=== PATIENT | male | born 1995 | race Caucasian/White ===

== ENCOUNTER 2022-08-13 13:00 | Emergency (ER) | payer SELFPAY ==
[~2022-08-13] VITALS: Ht 172.7 cm; Wt 77.1 kg
[2022-08-13 13:10] VITALS: BP 118/73
[2022-08-13] MEDS ORDERED: QUET50TA PO ×2 (13:22→13:30)
--- NOTE | 2022-08-13 13:24 | NUR ---
pt's preferred pharmacy updated in ehr; dr tate aware.
--- NOTE | 2022-08-13 13:44 | NUR ---
Patient discharged to home in stable condition. Written and verbal after care instructions given. Patient verbalizes understanding of instruction.
== END 2022-08-13 13:48 | disposition home or self-care (01) ==
LOC: ER 13:15
DX: F20.9 Schizophrenia, unspecified (principal); Z79.899 Other long term (current) drug therapy

== ENCOUNTER 2022-09-22 15:45 | Emergency (ER) | payer SELFPAY ==
[~2022-09-22] VITALS: Ht 177.8 cm; Wt 77.1 kg
[~2022-09-22 15:45] MED LIST: QUET50TA PO
[2022-09-22 15:56] VITALS: BP 126/82
--- NOTE | 2022-09-22 15:56 | NUR ---
REQUESTING MED REFILL FOR SEROQUEL 50 MG. NO MEDICAL COMPLAINTS.
[2022-09-22] MEDS ORDERED: QUET50TA PO (17:49)
== END 2022-09-22 17:54 | disposition home or self-care (01) ==
LOC: ER 15:46
DX: Z76.0 Encounter for issue of repeat prescription (principal); F31.9 Bipolar disorder, unspecified; Z60.2 Problems related to living alone; Z79.899 Other long term (current) drug therapy

== ENCOUNTER 2022-12-03 15:57 | Emergency (ER) | payer OTHER ==
[~2022-12-03] VITALS: Ht 177.8 cm; Wt 76.7 kg
--- NOTE | 2022-12-03 16:20 | NUR ---
CALLED TO TRIAGE,NO ANSWER
--- NOTE | 2022-12-03 16:42 | NUR ---
CALLED TO TRIAGE,NO ANSWER
[2022-12-03 17:17] VITALS: BP 129/90
--- NOTE | 2022-12-03 17:17 | NUR ---
MED REFILL FOR:SEROQUEL,MONTELUKAST AND PREDNISONE FOR HIS SEASONAL ALLERGY
[2022-12-03] MEDS ORDERED: QUET50TA PO (17:57)
[2022-12-03] MEDS ORDERED: MONT10TA22 PO (17:57)
--- NOTE | 2022-12-03 18:07 | NUR ---
Patient discharged to home in stable condition. Written and verbal after care instructions given. Patient verbalizes understanding of instruction.
== END 2022-12-03 18:07 | disposition home or self-care (01) ==
LOC: ER 16:03
DX: F20.9 Schizophrenia, unspecified (principal); F17.200 Nicotine dependence, unspecified, uncomplicated; J00 Acute nasopharyngitis [common cold]; F12.90 Cannabis use, unspecified, uncomplicated; F31.9 Bipolar disorder, unspecified; Z60.2 Problems related to living alone